=== PATIENT | female | born 1975 | race Two or more races ===

== ENCOUNTER 2018-10-13 16:16 | Emergency (ER) | payer OTHER ==
--- NOTE | 2018-10-13 17:18 | ER Document Report ---
ED Medical Screen (RME) - General Chief Complaint: Urinary Problem Stated Complaint: PAINFUL URINATION, BLOOD IN URINE Time Seen by Provider: 10/13/18 17:12 Primary Care Provider: ROSA WHITLOCK MD [Primary Care Provider] - Follow up as needed Mode of Arrival: Ambulatory Information source: Patient Notes: Patient presents to the emergency department with complaints of dysuria urinary frequency pain when she voids. Patient reports she has been evaluated by her provider treated with Rocephin 3 weeks ago for UTI symptoms. Patient reports she really did not have UTI symptoms but treated for UTI because they noted blood in her urine. She just had lab work done this Sunday. Patient's been told that she needs a CT scan to detect urinary tract infections because her kidneys have inflammation on the outside not on inside in UA does not detect an infection. She denies fever vomiting diarrhea. Reports she was lifting a couch yesterday when she felt pain. And since that time she has had all the symptoms. I have greeted and performed a rapid initial assessment of this patient. A comprehensive ED assessment and evaluation of the patient, analysis of test results and completion of the medical decision making process will be conducted by additional ED providers. Dictation of this chart was performed using voice recognition software; therefore, there may be some unintended grammatical errors. TRAVEL OUTSIDE OF THE [place] IN LAST 30 DAYS: No - Related Data Allergies/Adverse Reactions: oxycodone HCl [From Percocet] Allergy (Severe, Verified 10/13/18 16:19) Difficulty breathing morphine [Morphine] Allergy (Intermediate, Verified 10/13/18 16:19) Hives hydrocodone bitartrate [From Vicodin] Allergy (Mild, Verified 10/13/18 16:19) Dizziness Past Medical History - Social History Chew tobacco use (# tins/day): No Frequency of alcohol use: None Drug Abuse: None Renal/ Medical History: Denies: Hx Peritoneal Dialysis Past Surgical History: Reports: Hx Section - X 2, Hx Gynecologic Surgery - OVARIAN CYST. - Immunizations Hx Diphtheria, Pertussis, Tetanus Vaccination: Yes - Received 04/2012 Physical Exam - Vital signs Vitals: Temp Pulse Resp BP Pulse Ox 97.5 F 72 16 142/85 H 97 10/13/18 16:33 10/13/18 16:33 10/13/18 16:33 10/13/18 16:33 10/13/18 16:33 Course - Vital Signs Vital signs: Temp Pulse Resp BP Pulse Ox 97.5 F 72 16 142/85 H 97 10/13/18 16:33 10/13/18 16:33 10/13/18 16:33 10/13/18 16:33 10/13/18 16:33 Doctor's Discharge - Discharge Referrals: ROSA WHITLOCK MD [Primary Care Provider] - Follow up as needed
[2018-10-13 17:52] LABS: ABSOLUTE BASOPHILS # (AUTO) 0.1 10^3/uL (0.0-0.2); ABSOLUTE EOSINOPHILS # (AUTO) 0.2 10^3/uL (0.0-0.6); ABSOLUTE LYMPHOCYTES (AUTO) 2.7 10^3/uL (0.5-4.7); ABSOLUTE MONOCYTES (AUTO) 0.5 10^3/uL (0.1-1.4); ABSOLUTE NEUT (AUTO) 7.7 10^3/uL (1.7-8.2); EOSINOPHILS % (AUTO) 1.9 % (0-6); HEMATOCRIT 38.4 % (36.0-47.0); HEMOGLOBIN 12.9 g/dL (12.0-15.5); LYMPHOCYTES % (AUTO) 23.8 % (13-45); MEAN CORPUSCULAR HEMOGLOBIN 29.4 pg (27.0-33.4); MEAN CORPUSCULAR HGB CONC 33.6 g/dL (32.0-36.0); MEAN CORPUSCULAR VOLUME 88 fl (80-97); MONOCYTES % (AUTO) 4.3 % (3-13); PLATELET COUNT 361 10^3/uL (150-450); RED BLOOD COUNT 4.39 10^6/uL (3.72-5.28); RED CELL DISTRIBUTION WIDTH 12.6 % (11.5-14.0); TOTAL CELLS COUNTED % (AUTO) 100 %; WHITE BLOOD COUNT 11.2 10^3/uL (4.0-10.5)
[2018-10-13 18:13] LABS: ALANINE AMINOTRANSFERASE 52 U/L (9-52); ALBUMIN 4.5 g/dL (3.5-5.0); ALKALINE PHOSPHATASE 71 U/L (38-126); ANION GAP 9 (5-19); ASPARTATE AMINO TRANSFERASE 54 U/L (14-36); BILIRUBIN,DIRECT 0.2 mg/dL (0.0-0.4); BILIRUBIN,TOTAL 0.5 mg/dL (0.2-1.3); BLOOD UREA NITROGEN 11 mg/dL (7-20); CALCIUM 9.2 mg/dL (8.4-10.2); CARBON DIOXIDE 28 mmol/L (22-30); CHLORIDE 103 mmol/L (98-107); GLUCOSE 104 mg/dL (75-110); POTASSIUM 4.4 mmol/L (3.6-5.0); SODIUM 140.1 mmol/L (137-145); TOTAL PROTEIN 7.8 g/dL (6.3-8.2)
[2018-10-13 18:15] LABS: COLOR,URINE AMBER
[2018-10-13 18:16] LABS: APPEARANCE,URINE HAZY; BILIRUBIN,URINE NEGATIVE (NEGATIVE); GLUCOSE, URINE NEGATIVE (NEGATIVE); KETONES,URINE 25 mg/dL (NEGATIVE); LEUKOCYTE ESTERASE,URINE LARGE (NEGATIVE); NITRITE,URINE NEGATIVE (NEGATIVE); PROTEIN,URINE 100 mg/dL (NEGATIVE); URINE SPECIFIC GRAVITY 1.021; UROBILINOGEN,URINE NEGATIVE mg/dL (<2.0)
--- NOTE | 2018-10-13 18:34 | RADIOLOGY REPORT (SQ) ---
EXAM DESCRIPTION: U/S RETROPERITON (RENAL/AORTA) COMPLETED DATE/TIME: 10/13/2018 6:13 pm REASON FOR STUDY: pain, heamturia COMPARISON: None. TECHNIQUE: Dynamic and static grayscale images acquired of the kidneys and bladder and recorded on P ACS. Additional selected color Doppler and spectral images recorded. LIMITATIONS: None. FINDINGS: RIGHT KIDNEY: Normal size. Normal echogenicity. No solid or suspicious masses. No hydronep hrosis. No calcifications. LEFT KIDNEY: Normal size. Normal echogenicity. No solid or suspicious masses. No hydronephrosis. No calcifications. BLADDER: Decompressed. OTHER FINDINGS: 2.9 cm left ovarian cyst. Fatty infiltration of the liver. IMPRESSION: No hydronephrosis. Bladder decompressed. 2.9 cm left ovarian cyst. Fatty infiltration of the liver. TECHNICAL DOCUMENTATION: JOB ID: [id number] [id number] 2010 [employer]- All Rights Reserved Reading location - IP/workstation name: [email or web address]
[2018-10-13] MEDS ORDERED: CEFTRIAXONE 1 GM/D5W RTU 1 GM/50 ML RTUPB IV ONE (19:04)
[2018-10-13] MEDS ORDERED: KETOROLAC TROMETHAMINE INJ/PF 30 MG/1 ML SDV IV ONE (19:10)
--- NOTE | 2018-10-13 19:12 | ER Document Report ---
ED General - General Chief Complaint: Urinary Problem Stated Complaint: PAINFUL URINATION, BLOOD IN URINE Time Seen by Provider: 10/13/18 17:12 Primary Care Provider: ROSA WHITLOCK MD [ACTIVE STAFF] - Follow up as needed Mode of Arrival: Ambulatory Information source: Patient, [facility] Records Notes: Patient presents to the emergency department with complaints of dysuria urinary frequency pain when she voids. Patient reports she has been evaluated by her provider treated with Rocephin 3 weeks ago for UTI symptoms. Patient reports she really did not have UTI symptoms but treated for UTI because they noted blood in her urine. She just had lab work done this Sunday. Patient's been told that she needs a CT scan to detect urinary tract infections because her ki dneys have inflammation on the outside not on inside in UA does not detect an infection. She denies fever vomiting diarrhea. Reports she was lifting a couch yesterday when she felt pain. And since that time she has had all the symptoms. TRAVEL OUTSIDE OF THE [place] IN LAST 30 DAYS: No - HPI Onset: Other Onset/Duration: Gradual, Persistent Quality of pain: Achy, Cramping Severity: Mild Associated symptoms: denies: Chest pain, Chills, Diarrhea, Fever, Headache, Leg swelling, Nausea, Vomiting, Shortness of breath Exacerbated by: Denies Relieved by: Denies Similar symptoms previously: Yes Recently seen / treated by doctor: Yes - Related Data Allergies/Adverse Reactions: oxycodone HCl [From Percocet] Allergy (Severe, Verified 10/13/18 16:19) Difficulty breathing morphine [Morphine] Allergy (Intermediate, Verified 10/13/18 16:19) Hives hydrocodone bitartrate [From Vicodin] Allergy (Mild, Verified 10/13/18 16:19) Dizziness Past Medical History - General Information source: Patient - Social History Smoking Status: Unknown if Ever Smoked Chew tobacco use (# tins/day): No Frequency of alcohol use: None Drug Abuse: None Lives with: Family Family History: Reviewed & Not Pertinent Patient has suicidal ideation: No Patient has homicidal ideation: No Renal/ Medical History: Denies: Hx Peritoneal Dialysis Past Surgical History: Reports: Hx Section - X 2, Hx Gynecologic Surgery - OVARIAN CYST. - Immunizations Hx Diphtheria, Pertussis, Tetanus Vaccination: Yes - Received 04/2012 Review of Systems - Review of Systems Notes: REVIEW OF SYSTEMS: CONSTITUTIONAL : Denies fever, chills, or sweats. Denies recent illness. Denies weight loss, recent hospitalizations. EENT: Denies visual changes, eye pain. Denies sore throat, oral lesions, difficulty swallowing. CARDIOVASCULAR: Denies chest pain. Denies palpitations. Denies lower extremity edema. RESPIRATORY: Denies cough. Denies shortness of breath, wheezing. GASTROINTESTINAL: Denies abdominal distention. Denies nausea, vomiting, or diarrhea. Denies blood in vomitus, stools, or per rectum. Denies black, tarry stools. Denies constipation. GENITOURINARY: Denies vaginal discharge. MUSCULOSKELETAL: Denies back or neck pain or stiffness. Denies joint pain or swelling. SKIN: Denies rash, lesions or sores. HEMATOLOGIC : Denies easy bruising or bleeding. LYMPHATIC: Denies swollen glands. NEUROLOGICAL: Denies confusion or altered mental status. Denies loss of consciousness. Denies dizziness or lightheadedness. Denies headache. Denies weakness or paralysis. Denies problems difficulty with ambulation, slurred speech. Denies sensory loss, numbness, or tingling. Denies seizures. PSYCHIATRIC: Denies anxiety or stress. Denies depression, suicidal ideation, or homicidal ideation. Denies visual or auditory hallucinations. Physical Exam - Vital signs Vitals: Temp Pulse Resp BP Pulse Ox 97.5 F 72 16 142/85 H 97 10/13/18 16:33 10/13/18 16:33 10/13/18 16:33 10/13/18 16:33 10/13/18 16:33 - Notes Notes: PHYSICAL EXAMINATION: GENERAL: Well-appearing, well-nourished and in no acute distress. HEAD: Atraumatic, normocephalic. EYES: Pupils equal round and reactive to light, extraocular movements intact, conjunctiva are normal. ENT: Nares patent, oropharynx clear without exudates. Moist mucous membranes. NECK: Normal range of motion, supple without lymphadenopathy LUNGS: Breath sounds clear to auscultation bilaterally and equal. No wheezes rales or rhonchi. HEART: Regular rate and rhythm without murmurs ABDOMEN: Soft, tenderness with palpation to the left lower quadrant. Nondistended abdomen. No guarding, no rebound. No masses appreciated. Female : deferred Musculoskeletal: Normal range of motion, no pitting or edema. No cyanosis. NEUROLOGICAL: Cranial nerves grossly intact. Normal speech, normal gait. Normal sensory, motor exams PSYCH: Normal mood, normal affect. SKIN: Warm, Dry, normal turgor, no rashes or lesions noted. Course - Re-evaluation Re-evalutation: 10/15/18 11:20 Microbiology 10/13/18 16:35 Urine Culture - Final Clean Catch Midstream NO GROWTH 2 DAYS Laboratory 10/13/18 10/13/18 10/13/18 16:35 17:44 17:44 WBC 11.2 H RBC 4.39 Hgb 12.9 Hct 38.4 MCV 88 MCH 29.4 MCHC 33.6 RDW 12.6 Plt Count 361 Seg Neutrophils % 69.0 Lymphocytes % 23.8 Monocytes % 4.3 Eosinophils % 1.9 Basophils % 1.0 Absolute Neutrophils 7.7 Absolute Lymphocytes 2.7 Absolute Monocytes 0.5 Absolute Eosinophils 0.2 Absolute Basophils 0.1 Sodium 140.1 Potassium 4.4 Chloride 103 Carbon Dioxide 28 Anion Gap 9 BUN 11 Creatinine 0.55 Est GFR ( Amer) > 60 Est GFR (Non-Af Amer) > 60 Glucose 104 Calcium 9.2 Total Bilirubin 0.5 Direct Bilirubin 0.2 Neonat Total Bilirubin Not Reportable Neonat Direct Bilirubin Not Reportable Neonat Indirect Bili Not Reportable AST 54 H ALT 52 Alkaline Phosphatase 71 Total Protein 7.8 Albumin 4.5 Urine Color [place] Urine Appearance HAZY Urine pH 6.0 Ur Specific [place] 1.021 Urine Protein 100 H Urine Glucose (UA) NEGATIVE Urine Ketones 25 H Urine Blood LARGE H Urine Nitrite NEGATIVE Urine Bilirubin NEGATIVE Urine Urobilinogen NEGATIVE Ur Leukocyte Esterase LARGE H Urine WBC (Auto) >182 Urine RBC (Auto) >182 Urine Bacteria (Auto) TRACE Squamous Epi Cells Auto 1 Urine Mucus (Auto) RARE Urine Ascorbic Acid NEGATIVE Urine HCG, Qual NEGATIVE Renal Ultrasound 10/13/18 17:16 IMPRESSION: No hydronephrosis. Bladder decompressed. 2.9 cm left ovarian cyst. Fatty infiltration of the liver. Temp Pulse Resp BP Pulse Ox 97.8 F 63 17 150/90 H 99 10/13/18 20:10 10/13/18 20:10 10/13/18 20:10 10/13/18 20:10 10/13/18 20:10 Patient presents with symptoms consistent with an acute cystitis. Vitals wnl. No history of fever, flank pain, or constitution symptoms to suggest ascending infection at this time. Patient is well in appearance, tolerating oral intake without difficulty. No focal abdominal tenderness to suggest acute appendicitis, biliary pathology, acute pancreatitis, tubo-ovarian abscesses, or pelvic inflammatory disease. Patient will be started on antibiotics at this time. A culture has been sent. They will be discharged with return precautions and follow-up recommendations. - Vital Signs Vital signs: Temp Pulse Resp BP Pulse Ox 97.8 F 63 17 150/90 H 99 10/13/18 20:10 10/13/18 20:10 10/13/18 20:10 10/13/18 20:10 10/13/18 20:10 - Laboratory Result Diagrams: 10/13/18 17:44 10/13/18 17:44 Laboratory results interpreted by me: 10/13/18 10/13/18 10/13/18 16:35 17:44 17:44 WBC 11.2 H AST 54 H Urine Protein 100 H Urine Ketones 25 H Urine Blood LARGE H Ur Leukocyte Esterase LARGE H - Diagnostic Test Radiology reviewed: Image reviewed, Reports reviewed Discharge - Discharge Clinical Impression: Left ovarian cyst Urinary tract infection Qualifiers: Urinary tract infection type: site unspecified Hematuria presence: with hematuria Qualified Code(s): N39.0 - Urinary tract infection, site not specified Condition: Good Disposition: HOME, SELF-CARE Instructions: Urinary Tract Infection ([facility]) Additional Instructions: Your urine shows findings consistent with a urinary tract infection. Please take all the antibiotics as directed even if your symptoms have improved. Please follow-up with your primary care physician as needed. Return to emergency room if you develop fever >101F, persistent vomiting, become lethargic, have severe pain in your sides, or any other symptoms that are concerning to you. Prescriptions: Cephalexin Monohydrate [Keflex 500 mg Capsule] 500 mg PO BID 7 Days #14 capsule Fluconazole [Diflucan] 150 mg PO ONCE PRN #1 tablet PRN Reason: Forms: Elevated Blood Pressure, Return to Work Referrals: ROSA WHITLOCK MD [ACTIVE STAFF] - Follow up as needed
[2018-10-13 20:17] VITALS: BP 150/90
== END 2018-10-13 20:20 | disposition home or self-care (01) ==
LOC: ER 16:16
DX: N39.0 Urinary tract infection, site not specified (principal); R31.9 Hematuria, unspecified; N83.202 Unspecified ovarian cyst, left side; Z88.5 Allergy status to narcotic agent
CPT/HCPCS: 99284; 96375; 96365; 36415; 87086; 85025; 81025; 80053; 81001; 76770; J1885; J0696

== ENCOUNTER 2019-10-13 12:16 | Emergency (ER) | payer OTHER ==
[2019-10-13 13:40] LABS: ABSOLUTE BASOPHILS # (AUTO) 0.1 10^3/uL (0.0-0.2); ABSOLUTE EOSINOPHILS # (AUTO) 0.3 10^3/uL (0.0-0.6); ABSOLUTE LYMPHOCYTES (AUTO) 2.5 10^3/uL (0.5-4.7); ABSOLUTE MONOCYTES (AUTO) 0.3 10^3/uL (0.1-1.4); ABSOLUTE NEUT (AUTO) 3.9 10^3/uL (1.7-8.2); EOSINOPHILS % (AUTO) 3.8 % (0-6); HEMATOCRIT 41.1 % (36.0-47.0); HEMOGLOBIN 14.3 g/dL (12.0-15.5); LYMPHOCYTES % (AUTO) 35.2 % (13-45); MEAN CORPUSCULAR HEMOGLOBIN 30.4 pg (27.0-33.4); MEAN CORPUSCULAR HGB CONC 34.8 g/dL (32.0-36.0); MEAN CORPUSCULAR VOLUME 87 fl (80-97); MONOCYTES % (AUTO) 3.9 % (3-13); PLATELET COUNT 436 10^3/uL (150-450); RED CELL DISTRIBUTION WIDTH 12.6 % (11.5-14.0); SEGMENTED NEUTROPHILS % (AUTO) 56.1 % (42-78); TOTAL CELLS COUNTED % (AUTO) 100 %
[2019-10-13 13:49] LABS: APPEARANCE,URINE CLEAR; BILIRUBIN,URINE NEGATIVE (NEGATIVE); COLOR,URINE YELLOW; GLUCOSE, URINE NEGATIVE (NEGATIVE); KETONES,URINE NEGATIVE (NEGATIVE); LEUKOCYTE ESTERASE,URINE NEGATIVE (NEGATIVE); NITRITE,URINE NEGATIVE (NEGATIVE); PROTEIN,URINE NEGATIVE (NEGATIVE); URINE SPECIFIC GRAVITY 1.016; UROBILINOGEN,URINE NEGATIVE mg/dL (<2.0)
[2019-10-13 14:02] LABS: ALBUMIN 4.6 g/dL (3.5-5.0); ALKALINE PHOSPHATASE 88 U/L (38-126); ANION GAP 5 (5-19); ASPARTATE AMINO TRANSFERASE 52 U/L (14-36); BILIRUBIN,TOTAL 0.5 mg/dL (0.2-1.3); BLOOD UREA NITROGEN 10 mg/dL (7-20); CALCIUM 9.4 mg/dL (8.4-10.2); CARBON DIOXIDE 30 mmol/L (22-30); CHLORIDE 103 mmol/L (98-107); GLUCOSE 94 mg/dL (75-110); TOTAL PROTEIN 8.1 g/dL (6.3-8.2)
[2019-10-13] MEDS ORDERED: HYDROMORPHONE HCL INJ/PF 2 MG/ML AMPULE IM ONE (16:51)
--- NOTE | 2019-10-13 19:39 | ER Document Report ---
ED Neck/Back Problem - General Chief Complaint: Neck Pain >24hrs old Stated Complaint: NECK/SHOULDER PAIN Time Seen by Provider: 10/13/19 16:23 Primary Care Provider: JORGE MITCHELL PA-C [Primary Care Provider] - Follow up as needed Mode of Arrival: Ambulatory Information source: Patient Notes: Patient reports 1 week history of neck pain that radiates into the left upper extremity. 5 days ago she went to the [facility] and was given a prescription for Robaxin. Patient states that 5 days ago she went to her primary doctor had x-rays and received a steroid shot and Toradol. Patient states pain worsened today and this prompted her to come in. Patient states she has orders for an MRI but was unable to get the test completed at the [facility]. Patient states that the pain radiates to the left upper extremity to the level of the elbow and occasionally shoots into the left hand. Patient denies any fever or history of IV drug abuse. Patient states pain worsens when she turns her head laterally or looks up. Patient denies any fever. Patient denies any recent trauma. TRAVEL OUTSIDE OF THE [place] IN LAST 30 DAYS: No - HPI Patient complains to provider of: Neck Onset: Last week Timing: Worse Quality of pain: Sharp Pain Level: 5 Associated symptoms: denies: Fever, Lower back pain, Upper back pain Exacerbated by: Movement of neck Relieved by: Nothing Similar symptoms previously: No Recently seen / treated by doctor: Yes - Related Data Allergies/Adverse Reactions: oxycodone HCl [From Percocet] Allergy (Severe, Verified 10/13/18 16:19) Difficulty breathing morphine [Morphine] Allergy (Intermediate, Verified 10/13/18 16:19) Hives hydrocodone bitartrate [From Vicodin] Allergy (Mild, Verified 10/13/18 16:19) Dizziness Past Medical History - General Information source: Patient - Social History Smoking Status: Never Smoker Frequency of alcohol use: None Drug Abuse: None Occupation: [facility] Lives with: Family Family History: Reviewed & Not Pertinent Patient has homicidal ideation: No Renal/ Medical History: Reports: Hx Ovarian Cysts. Denies: Hx Peritoneal Dialysis Past Surgical History: Reports: Hx Section - X 2, Hx Gynecologic Surgery - OVARIAN CYST. - Immunizations Hx Diphtheria, Pertussis, Tetanus Vaccination: Yes - Received 04/2012 Review of Systems - Review of Systems Constitutional: No symptoms reported. denies: Fever EENT: No symptoms reported Cardiovascular: No symptoms reported. denies: Chest pain Respiratory: No symptoms reported. denies: Cough, Short of breath Gastrointestinal: No symptoms reported. denies: Nausea, Vomiting Genitourinary: No symptoms reported Female Genitourinary: No symptoms reported Musculoskeletal: Neck pain Skin: No symptoms reported Hematologic/Lymphatic: No symptoms reported Neurological/Psychological: No symptoms reported Physical Exam - Vital signs Vitals: Temp Pulse Resp BP Pulse Ox 98.7 F 72 16 150/91 H 100 10/13/19 12:19 10/13/19 12:19 10/13/19 12:19 10/13/19 12:19 10/13/19 12:19 - General General appearance: Appears well, Alert In distress: Mild - HEENT Head: Normocephalic, Atraumatic Eyes: Normal Conjunctiva: Normal Pupils: PERRL Nasal: Normal Mouth/Lips: Normal Mucous membranes: Normal Neck: Supple. No: Lymphadenopathy Notes: Patient with cervical tenderness with rotation of the head at the extremes lateral of range of motion, patient able to rotate laterally 45 degrees without difficulty, patient with tenderness with extension of the neck, patient able to flex neck without difficulty. - Respiratory Respiratory status: No respiratory distress Chest status: Nontender Breath sounds: Normal. No: Rales, Rhonchi, Stridor, Wheezing Chest palpation: Normal - Cardiovascular Rhythm: Regular Heart sounds: S1 appreciated, S2 appreciated Murmur: No - Abdominal Inspection: Normal - Back Back: Tender - Left trapezius muscle tenderness. 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 No: Involuntary movements, Weakness - Psychological Associated symptoms: Normal affect, Normal mood - Skin Skin Temperature: Warm Skin Moisture: Dry Skin Color: Normal Course - Re-evaluation Re-evalutation: 10/13/19 20:02 Patient with 5 out of 5 muscle strength and normal muscle tone to bilateral upper extremities. No focal neurologic deficits. No fever or leukocytosis. Consulted with Dr. Rueda regarding patient's MRI results, advises giving steroids and having patient follow-up with Ortho neuro spine specialty no additional testing advised at this time. - Vital Signs Vital signs: Temp Pulse Resp BP Pulse Ox 98.7 F 72 16 150/91 H 100 10/13/19 12:19 10/13/19 12:19 10/13/19 12:19 10/13/19 12:19 10/13/19 12:19 - Laboratory Result Diagrams: 10/13/19 12:23 10/13/19 12:23 Laboratory results interpreted by me: 10/13/19 10/13/19 12:23 12:23 AST 52 H ALT 61 H Urine Blood SMALL H 10/13/19 19:42 Labs- All tests 24 hr 10/13/19 10/13/19 10/13/19 12:23 12:23 12:23 WBC 7.0 RBC 4.70 Hgb 14.3 Hct 41.1 MCV 87 MCH 30.4 MCHC 34.8 RDW 12.6 Plt Count 436 Lymph % (Auto) 35.2 Reagan % (Auto) 3.9 Eos % (Auto) 3.8 Baso % (Auto) 1.0 Absolute Neuts (auto) 3.9 Absolute Lymphs (auto) 2.5 Absolute Monos (auto) 0.3 Absolute Eos (auto) 0.3 Absolute Basos (auto) 0.1 Seg Neutrophils % 56.1 Sodium 138.4 Potassium 4.0 Chloride 103 Carbon Dioxide 30 Anion Gap 5 BUN 10 Creatinine 0.60 Est GFR ( Amer) > 60 Est GFR (MDRD) Non-Af > 60 Glucose 94 Calcium 9.4 Total Bilirubin 0.5 Direct Bilirubin 0.0 Neonat Total Bilirubin Not Reportable Neonat Direct Bilirubin Not Reportable Neonat Indirect Bili Not Reportable AST 52 H ALT 61 H Alkaline Phosphatase 88 Total Protein 8.1 Albumin 4.6 Serum HCG, Qual NEGATIVE Urine Color Urine Appearance Urine pH Ur Specific [place] Urine Protein Urine Glucose (UA) Urine Ketones Urine Blood Urine Nitrite Urine Bilirubin Urine Urobilinogen Ur Leukocyte Esterase Urine WBC (Auto) Urine RBC (Auto) U Hyaline Cast (Auto) Squamous Epi Cells Auto Urine Mucus (Auto) Urine Ascorbic Acid 10/13/19 12:23 WBC RBC Hgb Hct MCV MCH MCHC RDW Plt Count Lymph % (Auto) Reagan % (Auto) Eos % (Auto) Baso % (Auto) Absolute Neuts (auto) Absolute Lymphs (auto) Absolute Monos (auto) Absolute Eos (auto) Absolute Basos (auto) Seg Neutrophils % Sodium Potassium Chloride Carbon Dioxide Anion Gap BUN Creatinine Est GFR ( Amer) Est GFR (MDRD) Non-Af Glucose Calcium Total Bilirubin Direct Bilirubin Neonat Total Bilirubin Neonat Direct Bilirubin Neonat Indirect Bili AST ALT Alkaline Phosphatase Total Protein Albumin Serum HCG, Qual Urine Color YELLOW Urine Appearance CLEAR Urine pH 5.0 Ur Specific [place] 1.016 Urine Protein NEGATIVE Urine Glucose (UA) NEGATIVE Urine Ketones NEGATIVE Urine Blood SMALL H Urine Nitrite NEGATIVE Urine Bilirubin NEGATIVE Urine Urobilinogen NEGATIVE Ur Leukocyte Esterase NEGATIVE Urine WBC (Auto) 1 Urine RBC (Auto) 1 U Hyaline Cast (Auto) 1 Squamous Epi Cells Auto 1 Urine Mucus (Auto) FEW Urine Ascorbic Acid NEGATIVE - Diagnostic Test Radiology reviewed: Reports reviewed Discharge - Discharge Clinical Impression: Neck pain, Cervical radiculopathy Condition: Stable Disposition: HOME, SELF-CARE Instructions: Radiculopathy ([facility]), Herniated Disc ([facility]) Additional Instructions: Return immediately for any new or worsening symptoms Followup with your primary care provider, call tomorrow to make a followup appointment Follow-up with orthopedics or neuro spine specialty for further management, call tomorrow for an appointment Prescriptions: Prednisone [Deltasone 20 mg Tablet] 3 tab PO DAILY 5 Days #15 tablet Hydromorphone HCl [Dilaudid 2 mg Tablet] 2 mg PO Q6 PRN #15 tablet PRN Reason: Lidocaine [Lidoderm 5% (700 mg) Transdermal Patch] 1 patch TP DAILY PRN #10 adh..patch PRN Reason: Referrals: JORGE MITCHELL PA-C [Primary Care Provider] - Follow up as needed [facility] [Provider Group] - Follow up tomorrow
--- NOTE | 2019-10-13 19:46 | RADIOLOGY REPORT (SQ) ---
EXAM DESCRIPTION: MRI CERVICAL SPINE COMBO IMAGES COMPLETED DATE/TIME: 10/13/2019 7:22 pm REASON FOR STUDY: neck pain, diff moving neck, L arm pain COMPARISON: None. TECHNIQUE: Sagittal and Axial imaging includes T1, T2, STIR and gradient echo sequences. T1 post jennifer olinium sequences. CONTRAST TYPE AND DOSE: 10 mL Prohance. RENAL FUNCTION: Not indicated. ACR Type II contrast agent associated with few, if any, unconfounded cases of NSF LIMITATIONS: None. FINDINGS: ALIGNMENT: Normal. VERTEBRAE: Intact. BONE MARROW: Normal. No marrow replacement or reactive changes. DISCS: There is loss of height of the C5-6 and C6-7 discs with decreased T2 signal intensity. HARDWARE: None in the spine. CORD AND BASE OF BRAIN: Normal in size and signal intensity. SOFT TISSUES: No soft tissue masses. C1-C2: No significant spinal stenosis. C2-C3: No significant spinal stenosis or exit foraminal stenosis. C3-C4: No significant spinal stenosis or exit foraminal stenosis. C4-C5: Shallow midline disc/ osteophyte complex contacts the spinal cord but does not deform the cord . No foraminal stenosis. C5-C6: Broad-based disc/osteophyte complex contacts the cord but does not deform the cord. There is no foraminal stenosis. C6-C7: Broad-based slightly asymmetrical disc/ osteophyte complex slightly deforms the cord on the le ft. See image 99 series 8. No foraminal stenosis. C7-T1: No significant spinal stenosis or exit foraminal stenosis. UPPER THORACIC: Incompletely imaged. No significant spinal stenosis or exit foraminal stenosis. ENHANCEMENT: No abnormal enhancement. OTHER: . IMPRESSION: There are disc/osteophyte complexes from C4 to C7 as described. The most significant fi nding appears to be a C6-7 where the left side of the cord is slightly deformed COMMENT: None. TECHNICAL DOCUMENTATION: JOB ID: [id number] 2010 [employer]- All Rights Reserved Reading location - IP/workstation name: [email or web address]
[2019-10-13] MEDS ORDERED: HYDROMORPHONE HCL INJ/PF 2 MG/ML AMPULE IV ONE (20:19)
[2019-10-13 21:23] VITALS: BP 145/70
== END 2019-10-13 21:46 | disposition home or self-care (01) ==
LOC: ER 12:16
DX: M54.12 Radiculopathy, cervical region (principal); M54.2 Cervicalgia; M79.602 Pain in left arm; M25.522 Pain in left elbow; M79.642 Pain in left hand; Z88.8 Allergy status to other drugs, medicaments and biological substances
CPT/HCPCS: 99284; 96372; 36415; 84703; 85025; 80053; 81001; 72156; A9576; J1170

== ENCOUNTER 2019-11-11 08:24 | Emergency (ER) | payer OTHER ==
[2019-11-11 09:26] VITALS: BP 144/81
[2019-11-11] MEDS ORDERED: NORMAL SALINE 1000 ML 1,000 ML IV ONE (10:07)
[2019-11-11] MEDS ORDERED: ONDANSETRON HCL INJ/PF 4 MG/2 ML SDV IV ONE ×3 (10:07→16:21)
[2019-11-11] MEDS ORDERED: HYDROMORPHONE HCL INJ/PF 2 MG/ML AMPULE IV ONE ×3 (10:07→16:21)
--- NOTE | 2019-11-11 10:07 | ER Document Report ---
Entered by BRADLEY DELGADO SCRIBE 11/11/19 0911 Acting as scribe for:CAROLYNN HERNANDEZ MD ED GI/ - General Chief Complaint: Fever Stated Complaint: FEVER,RECTAL PAIN Time Seen by Provider: 11/11/19 09:10 Primary Care Provider: [facility] [Provider Group] (Call tomorrow to schedule an appointment this week.) [facility] [Provider Group] - Follow up as needed Mode of Arrival: Ambulatory Information source: Patient Notes: This 44 year old female patient presents to the emergency department today with complaints of rectal pain, abdominal pain, and subjective fevers. Patient reports that on 11/05/19 she had a "sugaring" done which she reports is a type of wax hair removal and the next day she developed this rectal pain and she is unsure if it is related. Patient reports it is incredibly painful if she attem pts to have a bowel movement. TRAVEL OUTSIDE OF THE [place] 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 [employer] Lives with: Family Family History: Reviewed & Not Pertinent Renal/ Medical History: Reports: Hx Ovarian Cysts Past Surgical History: Reports: Hx Section - X 2, Hx Gynecologic Surgery - OVARIAN CYST REMOVAL - Immunizations Hx Diphtheria, Pertussis, Tetanus Vaccination: Yes - Received 04/2012 Review of Systems - Review of Systems Constitutional: See HPI, Fever - subjective EENT: No symptoms reported Cardiovascular: No symptoms reported Respiratory: No symptoms reported Gastrointestinal: See HPI, Abdominal pain, Other - rectal pain Genitourinary: No symptoms reported Female Genitourinary: No symptoms reported Musculoskeletal: No symptoms reported Skin: No symptoms reported Hematologic/Lymphatic: No symptoms reported Neurological/Psychological: No symptoms reported -: Yes All other systems reviewed and negative Physical Exam - Vital signs Vitals: Temp 99.0 F 11/11/19 08:26 - Notes Notes: Physical Exam: General: Alert, appears well. HEENT: Normocephalic. Atraumatic. PERRL. Extraocular movements intact. Oropharynx clear. Neck: Supple. Non-tender. Respiratory: No respiratory distress. Clear and equal breath sounds bilaterally. Cardiovascular: Regular rate and rhythm. Abdominal: Lower abdominal tenderness to palpation, Left > Right. No distension. Normal Bowel Sounds. Back: No gross abnormalities. Rectal: There are skin tags, there are no anal fissures seen externally. Lubricated digital rectal exam was exquisitely tender mostly to the left side and cephalic direction. There was extreme spasm of the anal sphincter. The exam was attempted a second time after introducing an ampule of lidocaine jelly from the [employer]. At this time there is still sphincter spasm, there is a question of fullness in the jerson-sphincter tissues in the cephalad direction. It is most tender that way. There is also some tenderness anteriorly towards the vagina and into the left side. There is no external swelling or suggestion of abscess. Extremities: Moves all four extremities. Upper extremities: Normal inspection. Normal ROM. Lower extremities: Normal inspection. No edema. Normal ROM. Neurological: Normal cognition. AAOx4. Normal speech. Psychological: Normal affect. Normal Mood. Skin: Warm. Dry. Normal color. Course - Vital Signs Vital signs: Temp Pulse Resp BP Pulse Ox 99.5 F 91 16 144/81 H 97 11/11/19 12:50 11/11/19 12:50 11/11/19 12:50 11/11/19 12:50 11/11/19 12:50 - Laboratory Result Diagrams: 11/11/19 11:49 11/11/19 11:49 Laboratory results interpreted by me: 11/11/19 11/11/19 10:50 11:49 Sodium 136.2 L Urine Blood LARGE H - Diagnostic Test Radiology reviewed: Image reviewed, Reports reviewed - CT scan of the abdomen and pelvis with rectal contrast does not show acute abnormality. - Consults Dr. Orozco Consulted provider: follow-up in office - Try Anusol HC suppositories. Discharge - Discharge Clinical Impression: Rectal or anal pain Condition: Stable Disposition: HOME, SELF-CARE Additional Instructions: There was no clear explanation for the anal and rectal pain you are experiencing. The contrasted CT scan of that region was unremarkable. Your white blood cell count did not suggest an infectious process. Try the Anusol HC suppositories and the pain medication as prescribed. Drink plenty of fluids and take a stool softener to keep your bowel movements soft. Call [facility] today or tomorrow to schedule an appointment this week for recheck. RETURN TO THE EMERGENCY ROOM IF ANY NEW OR WORSENING SYMPTOMS. Prescriptions: Hydrocortisone Acetate [Anusol Hc 25 mg Supp.rect] 1 supp.rect [place] BID #14 supp.rect Hydromorphone HCl [Dilaudid 2 mg Tablet] 2 mg PO ASDIR PRN #15 tablet PRN Reason: Forms: Return to Work Referrals: [facility] [Provider Group] - Follow up as needed [facility] [Provider Group] (Call tomorrow to schedule an appointment this week.) I personally performed the services described in the documentation, reviewed and edited the documentation which was dictated to the scribe in my presence, and it accurately records my words and actions.
[2019-11-11] MEDS ORDERED: LIDOCAINE 2% URO-JET 5 ML KIT MM ONE (10:08)
[2019-11-11 11:42] LABS: APPEARANCE,URINE CLEAR; BILIRUBIN,URINE NEGATIVE (NEGATIVE); COLOR,URINE YELLOW; GLUCOSE, URINE NEGATIVE (NEGATIVE); KETONES,URINE NEGATIVE (NEGATIVE); LEUKOCYTE ESTERASE,URINE NEGATIVE (NEGATIVE); NITRITE,URINE NEGATIVE (NEGATIVE); PROTEIN,URINE NEGATIVE (NEGATIVE); URINE SPECIFIC GRAVITY 1.011; UROBILINOGEN,URINE NEGATIVE mg/dL (<2.0)
[2019-11-11 12:08] LABS: ABSOLUTE EOSINOPHILS # (AUTO) 0.1 10^3/uL (0.0-0.6); ABSOLUTE LYMPHOCYTES (AUTO) 1.4 10^3/uL (0.5-4.7); ABSOLUTE MONOCYTES (AUTO) 0.7 10^3/uL (0.1-1.4); ABSOLUTE NEUT (AUTO) 7.5 10^3/uL (1.7-8.2); BASOPHILS % (AUTO) 0.5 % (0-2); EOSINOPHILS % (AUTO) 1.3 % (0-6); HEMATOCRIT 38.1 % (36.0-47.0); HEMOGLOBIN 13.1 g/dL (12.0-15.5); LYMPHOCYTES % (AUTO) 14.2 % (13-45); MEAN CORPUSCULAR HEMOGLOBIN 30.2 pg (27.0-33.4); MEAN CORPUSCULAR HGB CONC 34.4 g/dL (32.0-36.0); MEAN CORPUSCULAR VOLUME 88 fl (80-97); MONOCYTES % (AUTO) 6.7 % (3-13); PLATELET COUNT 421 10^3/uL (150-450); RED BLOOD COUNT 4.33 10^6/uL (3.72-5.28); SEGMENTED NEUTROPHILS % (AUTO) 77.3 % (42-78); TOTAL CELLS COUNTED % (AUTO) 100 %; WHITE BLOOD COUNT 9.7 10^3/uL (4.0-10.5)
[2019-11-11 12:28] LABS: ALKALINE PHOSPHATASE 104 U/L (38-126); ANION GAP 7 (5-19); ASPARTATE AMINO TRANSFERASE 35 U/L (14-36); BILIRUBIN,DIRECT 0.1 mg/dL (0.0-0.4); BILIRUBIN,TOTAL 0.8 mg/dL (0.2-1.3); BLOOD UREA NITROGEN 10 mg/dL (7-20); CARBON DIOXIDE 28 mmol/L (22-30); CHLORIDE 101 mmol/L (98-107); GLUCOSE 99 mg/dL (75-110); TOTAL PROTEIN 7.4 g/dL (6.3-8.2)
--- NOTE | 2019-11-11 14:38 | RADIOLOGY REPORT (SQ) ---
EXAM DESCRIPTION: CT ABD/PELVIS ORAL ONLY IMAGES COMPLETED DATE/TIME: 11/11/2019 2:25 pm REASON FOR STUDY: rectal pain; to use rectal contrast COMPARISON: None. TECHNIQUE: CT scan of the abdomen and pelvis performed without intravenous contrast. Rectal contras t was administered. Images reviewed with lung, soft tissue, and bone windows. Reconstructed coronal and sagittal MPR images reviewed. All images stored on PACS. All CT scanners at this facility use dose modulation, iterative reconstruction, and/or weight based d osing when appropriate to reduce radiation dose to as low as reasonably achievable (ALARA). [facility]: Dose Right [facility]: CareDose [facility]: Dose Right [facility]: Teradose 4D [facility]: Smart [employer] RADIATION DOSE: CT Rad equipment meets quality standard of care and radiation dose reduction techniq ues were employed. CTDIvol: 8.3 mGy. DLP: 473 mGy-cm.mGy. LIMITATIONS: None. FINDINGS: LOWER CHEST: No significant findings. No nodules or infiltrates. NON-CONTRASTED LIVER, SPLEEN, ADRENALS: Evaluation limited by lack of IV contrast. No identified sign ificant masses. PANCREAS: No masses. No peripancreatic inflammatory changes. GALLBLADDER: No identified stones by CT criteria. No inflammatory changes to suggest cholecystitis. RIGHT KIDNEY AND URETER: No suspicious masses. Assessment limited by lack of IV contrast. No signif icant calcifications. No hydronephrosis or hydroureter. LEFT KIDNEY AND URETER: No suspicious masses. Assessment limited by lack of IV contrast. No signifi cant calcifications. No hydronephrosis or hydroureter. AORTA AND RETROPERITONEUM: No aneurysm. No retroperitoneal masses or adenopathy. BOWEL AND PERITONEAL CAVITY: No obvious masses or inflammatory changes. No free fluid. APPENDIX: Normal. PELVIS, BLADDER, AND ABDOMINAL WALL:No abnormal masses. No free fluid. Bladder normal. BONES: No significant findings. OTHER: No other significant finding. IMPRESSION: NO SIGNIFICANT OR ACUTE PROCESS IN THE ABDOMEN OR PELVIS. COMMENT: Quality ID # [id number]: Final reports with documentation of one or more dose reduction techniques (e.g., Automated exposure control, adjustment of the mA and/or kV according to patient size, use of iterative reconstruction technique) TECHNICAL DOCUMENTATION: JOB ID: [id number] 2010 [employer]- All Rights Reserved Reading location - IP/workstation name: [email or web address]
== END 2019-11-11 17:24 | disposition home or self-care (01) ==
LOC: ER 08:24
DX: K62.89 Other specified diseases of anus and rectum (principal); R50.9 Fever, unspecified; R10.9 Unspecified abdominal pain; Z88.6 Allergy status to analgesic agent
CPT/HCPCS: 96376; 99284; 96361; 96374; 96375; 36415; 84703; 85025; 80053; 81001; 74176; J1170; J2405; J7030; J3490

== ENCOUNTER 2019-11-16 08:02 | Observation (INO) | payer OTHER ==
[2019-11-16] MEDS ORDERED: OPIUM/BELLADONNA ALKALOIDS 30-16.2 MG SUPP.RECT PR ONE (10:48)
[2019-11-16] MEDS ORDERED: NORMAL SALINE 1000 ML 1,000 ML IV ONE (10:54)
[2019-11-16] MEDS ORDERED: HYDROMORPHONE HCL INJ/PF 2 MG/ML AMPULE IV ONE ×4 (11:24→22:00)
[2019-11-16 11:53] LABS: INTERNATIONAL RATION (INR) 0.89; PARTIAL THROMBOPLASTIN TIME 26.5 SEC (23.5-35.8); PROTHROMBIN TIME 12.3 SEC (11.4-15.4)
[2019-11-16 12:00] LABS: HEMATOCRIT 40.4 % (36.0-47.0); HEMOGLOBIN 13.7 g/dL (12.0-15.5); MEAN CORPUSCULAR HEMOGLOBIN 29.8 pg (27.0-33.4); MEAN CORPUSCULAR HGB CONC 33.8 g/dL (32.0-36.0); MEAN CORPUSCULAR VOLUME 88 fl (80-97); PLATELET COUNT 528 10^3/uL (150-450); RED BLOOD COUNT 4.59 10^6/uL (3.72-5.28); RED CELL DISTRIBUTION WIDTH 12.8 % (11.5-14.0); WHITE BLOOD COUNT 21.2 10^3/uL (4.0-10.5)
[2019-11-16 12:08] LABS: APPEARANCE,URINE CLEAR; BILIRUBIN,URINE NEGATIVE (NEGATIVE); COLOR,URINE YELLOW; GLUCOSE, URINE NEGATIVE (NEGATIVE); KETONES,URINE NEGATIVE (NEGATIVE); LEUKOCYTE ESTERASE,URINE NEGATIVE (NEGATIVE); NITRITE,URINE NEGATIVE (NEGATIVE); PROTEIN,URINE NEGATIVE (NEGATIVE); URINE SPECIFIC GRAVITY 1.014; UROBILINOGEN,URINE NEGATIVE mg/dL (<2.0)
[2019-11-16 12:10] LABS: ALBUMIN 4.1 g/dL (3.5-5.0); ALKALINE PHOSPHATASE 118 U/L (38-126); ANION GAP 10 (5-19); ASPARTATE AMINO TRANSFERASE 29 U/L (14-36); BILIRUBIN,TOTAL 0.6 mg/dL (0.2-1.3); BLOOD UREA NITROGEN 14 mg/dL (7-20); CALCIUM 9.3 mg/dL (8.4-10.2); CARBON DIOXIDE 27 mmol/L (22-30); CHLORIDE 101 mmol/L (98-107); GLUCOSE 120 mg/dL (75-110); POTASSIUM 3.7 mmol/L (3.6-5.0); TOTAL PROTEIN 7.7 g/dL (6.3-8.2)
[2019-11-16 12:28] LABS: ABSOLUTE LYMPHOCYTES# (MANUAL) 2.5 10^3/uL (0.5-4.7); ABSOLUTE MONOCYTES # (MANUAL) 0.8 10^3/uL (0.1-1.4); BASOPHILS % (MANUAL) 1 % (0-2); EOSINOPHILS % (MANUAL) 0 % (0-6); LYMPHOCYTES % (MANUAL) 12 % (13-45); MONOCYTES % (MANUAL) 4 % (3-13); SEGMENTED NEUTROPHILS % (MAN) 83 % (42-78); TOTAL CELLS COUNTED 100
[2019-11-16 12:32] LABS: PLATELET COMMENT INCREASED; RBC MORPHOLOGY COMMENT NORMO-CYTIC/CHROMIC
[2019-11-16] MEDS ORDERED: VANCOMYCIN HCL INJ 1000 MG VIAL IV ONE (14:04)
[2019-11-16] MEDS ORDERED: CEFEPIME 2 GM/D5W RTU 2 GM/50 ML RTUPB IV ONE (15:00)
--- NOTE | 2019-11-16 15:05 | RADIOLOGY REPORT (SQ) ---
EXAM DESCRIPTION: CT ABD/PELVIS WITH IV ORAL IMAGES COMPLETED DATE/TIME: 11/16/2019 2:48 pm REASON FOR STUDY: rectal pain COMPARISON: CT abdomen and pelvis 11/11/2019. TECHNIQUE: CT scan of the abdomen and pelvis performed using helical scanning technique with dynamic intravenous contrast injection and with oral contrast. Images reviewed with lung, soft tissue, and b one windows. Reconstructed coronal and sagittal MPR images reviewed. Delayed images for evaluation of the urinary system also acquired. All images stored on PACS. All CT scanners at this facility use dose modulation, iterative reconstruction, and/or weight based d osing when appropriate to reduce radiation dose to as low as reasonably achievable (ALARA). [facility]: Dose Right [facility]: CareDose [facility]: Dose Right [facility]: Teradose 4D [facility]: [employer] CONTRAST TYPE AND DOSE: contrast/concentration: Isovue 350.00 mmol/ml; Total Contrast Delivered: 87. 0 ml; Total Saline Delivered: 66.0 ml RENAL FUNCTION: Creatinine 0.70 RADIATION DOSE: CT Rad equipment meets quality standard of care and radiation dose reduction techniq ues were employed. CTDIvol: 10.0 - 14.2 mGy. DLP: 1390 mGy-cm.. LIMITATIONS: None. FINDINGS: LOWER CHEST: No consolidation or pleural effusion. LIVER: Diffuse decreased attenuation, most consistent with fatty infiltration. No dilated ducts. SPLEEN: Normal size. PANCREAS: No significant calcifications. No adjacent inflammation or peripancreatic fluid collections . Pancreatic duct not dilated. GALLBLADDER: No identified stones by CT criteria. No inflammatory changes to suggest cholecystitis. ADRENAL GLANDS: No significant masses or asymmetry. RIGHT KIDNEY AND URETER: No solid masses. No significant calcifications. No hydronephrosis or hyd roureter. LEFT KIDNEY AND URETER: No solid masses. No significant calcifications. No hydronephrosis or hydr oureter. AORTA AND VESSELS: No abdominal aortic aneurysm or evidence for acute dissection. RETROPERITONEUM: No retroperitoneal adenopathy, hemorrhage or masses. BOWEL AND PERITONEAL CAVITY: No evidence for bowel obstruction, the oral contrast has reached the col on. There is soft tissue stranding with wall thickening at the rectum. There is a large loculated f luid collection with adjacent inflammatory changes extending from the posterior anus into the midline gluteal region measuring approximately 6.5 x 5.4 x 6.5 cm (AP by transverse by craniocaudal diameter ). No evidence of soft tissue emphysema. APPENDIX: Normal. PELVIS: The urinary bladder is partially distended. The uterus is present. No free fluid. ABDOMINAL WALL: No hernias. BONES: No significant or acute findings. IMPRESSION: 1. 6.5 x 5.4 x 6.5 cm loculated perianal abscess. Surgical consult commended. 2. Wall thickening with soft tissue stranding at the rectum, suggestive of prostatitis, may be second shelbi to the acute infection/inflammation from the above findings. 3. Fatty infiltration of the liver. TECHNICAL DOCUMENTATION: JOB ID: [id number]-64 Quality ID # [id number]: Final reports with documentation of one or more dose reduction techniques (e.g., Au tomated exposure control, adjustment of the mA and/or kV according to patient size, use of iterative reconstruction technique) 2010 [employer]- All Rights Reserved Reading location - IP/workstation name: [email or web address]
[2019-11-16] MEDS ORDERED: ONDANSETRON HCL INJ/PF 4 MG/2 ML SDV IV ONE (15:27)
--- NOTE | 2019-11-16 15:59 | RADIOLOGY REPORT (SQ) ---
EXAM DESCRIPTION: CHEST SINGLE VIEW IMAGES COMPLETED DATE/TIME: 11/16/2019 3:51 pm REASON FOR STUDY: sobr COMPARISON: None. NUMBER OF VIEWS: One view. TECHNIQUE: Single frontal radiographic view of the chest acquired. LIMITATIONS: Overlapping breast tissue. FINDINGS: LUNGS AND PLEURA: No opacities, masses or pneumothorax. No pleural effusion. MEDIASTINUM AND HILAR STRUCTURES: No masses. Contour normal. HEART AND VASCULAR STRUCTURES: Heart normal in size. Normal vasculature. BONES: No acute findings. HARDWARE: None in the chest. OTHER: No other significant finding. IMPRESSION: NO SIGNIFICANT RADIOGRAPHIC FINDING IN THE CHEST. TECHNICAL DOCUMENTATION: JOB ID: [id number] 2010 [employer]- All Rights Reserved Reading location - IP/workstation name: [email or web address]
[2019-11-16] MEDS ORDERED: KETOROLAC TROMETHAMINE INJ/PF 30 MG/1 ML SDV IV ONE (16:41)
[2019-11-16] MEDS ORDERED: LIDOCAINE 1%/EPINEPHRINE INJ 20 ML VIAL ONE (16:45)
[2019-11-16] MEDS: NORMAL SALINE 1000 ML 1,000 ML IV PRN (17:45)
[2019-11-16] MEDS: METRONIDAZOLE 500 MG/NS RTU 500 MG/100 ML RTUPB IV SCH (17:50)
--- NOTE | 2019-11-16 17:51 | PDOC H&P ---
History of Present Illness Admission Date/PCP: [facility] Patient complains of: Perirectal pain and swelling History of Present Illness: NIGHAT PEARL is a 44 year old female with 1 month history of perirectal pain and swelling. She was seen as an outpatient and given prednisone for a thrombosed hemorrhoid. Her pain and swelling worsened. She presents today with severe, 10 out of 10 pain. It is sharp and stabbing. It radiates into her rectum. She reports a bulge immediately posterior to her rectum. She is having difficulty with bowel movements. She denies fevers, chills, nausea, vomiting, abdominal pain, dizziness, orthostasis, fatigue, headache. Past Medical History Infectious History Note: PCOS Past Surgical History Past Surgical History: Reports: Section - X 2 Social History Smoking Status: Never Smoker Electronic Cigarette use?: No Frequency of Alcohol Use: None Hx Recreational Drug Use: No Hx Prescription Drug Abuse: No Family History Family History: Reviewed & Not Pertinent Parental Family History Reviewed: Yes Children Family History Reviewed: Yes Sibling(s) Family History Reviewed.: Yes Medication/Allergy Home Medications: Pv W-O Vit A/Iron,Carbonyl/FA [Prenatabs Obn Tablet] 1 each PO DAILY 11/16/11 Hydromorphone HCl [Dilaudid 2 Mg Tablet] 2 mg PO Q6HP PRN 06/01/12 Ibuprofen [Motrin 600 Mg Tablet] 600 mg PO QID 06/01/12 Cephalexin Monohydrate [Keflex 500 mg Capsule] 500 mg PO BID 7 Days #14 capsule 10/13/18 Fluconazole [Diflucan] 150 mg PO ONCE PRN #1 tablet 10/13/18 Hydromorphone HCl [Dilaudid 2 mg Tablet] 2 mg PO Q6 PRN #15 tablet 10/13/19 Lidocaine [Lidoderm 5% (700 mg) Transdermal Patch] 1 patch TP DAILY PRN #10 adh..patch 10/13/19 Prednisone [Deltasone 20 mg Tablet] 3 tab PO DAILY 5 Days #15 tablet 10/13/19 Hydrocortisone Acetate [Anusol Hc 25 mg Supp.rect] 1 supp.rect [place] BID #14 supp.rect 11/11/19 Hydromorphone HCl [Dilaudid 2 mg Tablet] 2 mg PO ASDIR PRN #15 tablet 11/11/19 Allergies/Adverse Reactions: oxycodone HCl [From Percocet] Allergy (Severe, Verified 11/16/19 08:07) Difficulty breathing morphine [Morphine] Allergy (Intermediate, Verified 11/16/19 08:07) Hives hydrocodone bitartrate [From Vicodin] Allergy (Mild, Verified 11/16/19 08:07) Dizziness Review of Systems Constitutional: ABSENT: anorexia, chills, fatigue Eyes: ABSENT: visual disturbances Ears: ABSENT: hearing changes Nose, Mouth, and Throat: ABSENT: sore throat Cardiovascular: ABSENT: chest pain Respiratory: ABSENT: cough Gastrointestinal: PRESENT: other - Rectal pain and swelling, severe Genitourinary: ABSENT: dysuria Musculoskeletal: ABSENT: back pain Integumentary: ABSENT: pruritus, rash Neurological: ABSENT: confusion, convulsions, dizziness Psychiatric: ABSENT: anxiety, depression Endocrine: ABSENT: cold intolerance, heat intolerance Hematologic/Lymphatic: ABSENT: easy bleeding, easy bruising Physical Exam Vital Signs: Temp Pulse Resp BP Pulse Ox 99.0 F 88 20 133/84 H 100 11/16/19 16:00 11/16/19 16:00 11/16/19 16:00 11/16/19 16:00 11/16/19 16:00 Intake & Output 11/15/19 11/16/19 11/17/19 06:59 06:59 06:59 Intake Total 1050 Balance 1050 Weight 76 kg General appearance: PRESENT: no acute distress, cooperative Head exam: PRESENT: atraumatic, normocephalic Eye exam: PRESENT: EOMI, PERRLA. ABSENT: scleral icterus Mouth exam: PRESENT: moist, neck supple Teeth exam: ABSENT: poor dentation Neck exam: ABSENT: meningismus, tenderness, thyromegaly, tracheal deviation Respiratory exam: PRESENT: unlabored. ABSENT: tachypnea Cardiovascular exam: PRESENT: tachycardia - Mild GI/Abdominal exam: PRESENT: soft. ABSENT: distended, firm, guarding, tenderness Rectal exam: PRESENT: tenderness - 12:00 posterior., other - Tender fluctuant/tense abscess in the 12:00 posterior position. Extremities exam: ABSENT: clubbing Musculoskeletal exam: ABSENT: deformity Neurological exam: PRESENT: alert, awake, oriented to person, oriented to place, oriented to time, oriented to situation Psychiatric exam: PRESENT: anxious. ABSENT: agitated, depressed Focused psych exam: ABSENT: delusional Skin exam: ABSENT: cyanosis, erythema, jaundice Results Laboratory Results: 11/16/19 11:24 11/16/19 11:24 11/16/19 11/16/19 11/16/19 11:24 11:24 11:24 WBC 21.2 H RBC 4.59 Hgb 13.7 Hct 40.4 MCV 88 MCH 29.8 MCHC 33.8 RDW 12.8 Plt Count 528 H Seg Neutrophils % Not Reportable Sodium 137.8 Potassium 3.7 Chloride 101 Carbon Dioxide 27 Anion Gap 10 BUN 14 Creatinine 0.70 Est GFR ( Amer) > 60 Glucose 120 H Lactic Acid 1.8 Calcium 9.3 Total Bilirubin 0.6 AST 29 Alkaline Phosphatase 118 Total Protein 7.7 Albumin 4.1 Lipase 97.2 Urine Color Urine Appearance Urine pH Ur Specific [place] Urine Protein Urine Glucose (UA) Urine Ketones Urine Blood Urine Nitrite Ur Leukocyte Esterase Urine WBC (Auto) Urine RBC (Auto) 11/16/19 11:24 WBC RBC Hgb Hct MCV MCH MCHC RDW Plt Count Seg Neutrophils % Sodium Potassium Chloride Carbon Dioxide Anion Gap BUN Creatinine Est GFR ( Amer) Glucose Lactic Acid Calcium Total Bilirubin AST Alkaline Phosphatase Total Protein Albumin Lipase Urine Color YELLOW Urine Appearance CLEAR Urine pH 6.0 Ur Specific [place] 1.014 Urine Protein NEGATIVE Urine Glucose (UA) NEGATIVE Urine Ketones NEGATIVE Urine Blood SMALL H Urine Nitrite NEGATIVE Ur Leukocyte Esterase NEGATIVE Urine WBC (Auto) 0 Urine RBC (Auto) 0 Impressions: Abdomen/Pelvis CT 11/16/19 00:00 IMPRESSION: 1. 6.5 x 5.4 x 6.5 cm loculated perianal abscess. Surgical consult commended. 2. Wall thickening with soft tissue stranding at the rectum, suggestive of prostatitis, may be secondary to the acute infection/inflammation from the above findings. 3. Fatty infiltration of the liver. Chest X-Ray 11/16/19 10:53 IMPRESSION: NO SIGNIFICANT RADIOGRAPHIC FINDING IN THE CHEST. Assessment & Plan - Diagnosis (1) Perirectal abscess Is this a current diagnosis for this admission?: Yes - Time Anticipated Discharge Disposition: Home, Self Care Anticipated Discharge Timeframe: within 48 hours - Plan Summary Plan Summary: This is a 44-year-old female with a large perirectal abscess. It is tense, distended, and appears superficial. I discussed treatment options with her and her . They have requested incision and drainage at the bedside tonight, in order to provide her with as much relief as possible. I have discussed with her the risks and benefits of the procedure, including need for further surgery. She has agreed to the procedure. Informed consent was obtained, and all questions were answered.
--- NOTE | 2019-11-16 17:58 | Operative Report ---
Nonrecallable Operative Report DATE OF SURGERY: 11/16/19 PREOPERATIVE DIAGNOSIS: Perirectal abscess POSTOPERATIVE DIAGNOSIS: Same OPERATION: Incision and drainage of a large perirectal abscess SURGEON: TRESA DICKERSON ANESTHESIA: Local - And Dilaudid COMPLICATIONS: None apparent ESTIMATED BLOOD LOSS: Minimal PROCEDURE: Drains/implants: 4 x 4 gauze. Procedure in detail: After informed consent was obtained, the patient was laid in the right lateral decubitus position in the ER treatment room. The area of the sacrum and rectum were prepped and draped in a normal sterile fashion. There was a tense, fluctuant area in the midline, 12:00 posterior position. 1% lidocaine with epinephrine was used to infiltrate the skin and soft tissue ar ound the fluctuant area. 15 blade scalpel was then used to create an incision in the skin. Dissection was carried to the abscess cavity using sharp dissection. The abscess cavity was laid open. A large amount of thick, foul- smelling, purulent material was encountered. The wound was probed, loculations were broken, the cavity was irrigated, and then it was packed. At this time the procedure was concluded. All sponge, instrument, and needle counts were correct x2. Condition: Stable.
[2019-11-16] MEDS: DOCUSATE SODIUM 100 MG CAPSULE PO SCH (18:29)
[2019-11-16] MEDS: HYDROMORPHONE HCL INJ/PF 2 MG/ML AMPULE IV PRN (18:29)
--- NOTE | 2019-11-16 19:31 | ER Document Report ---
Entered by SONJA ROBLES SCRIBE 11/16/19 1038 Acting as scribe for:YARIEL HOPKINS MD ED General - General Chief Complaint: Rectal Pain Stated Complaint: RECTAL PAIN Time Seen by Provider: 11/16/19 10:05 Information source: Patient Notes: This 44 year old female patient presents to the emergency department today with rectal pain. Patient states she visited the ED x5 days ago and her CT did not have any significant findings. Patient states she visited her PCP at [facility] x4 days ago and was told she may have a internal hemorrhoid. Patient states she was given Lidocaine, Prednisone, and cream. Patient states she is not able to have a bowel movement without pain and has been taking stool softeners. Patient states she is in too much pain when trying to sit and visited [facility] again yesterday. Patient states she was given Dilaudid and took x2 last night without relief. Denies vaginal pain, fever, chills, or bleeding from her rectum. Patient states her rectal pain radiates to her buttocks and lower abdomen. Patient also reports a chronic hemorrhoid she has had since her last . TRAVEL OUTSIDE OF THE [place] IN LAST 30 DAYS: No - Related Data Allergies/Adverse Reactions: oxycodone HCl [From Percocet] Allergy (Severe, Verified 11/16/19 08:07) Difficulty breathing morphine [Morphine] Allergy (Intermediate, Verified 11/16/19 08:07) Hives hydrocodone bitartrate [From Vicodin] Allergy (Mild, Verified 11/16/19 08:07) Dizziness Home Medications: naprosyn. prednisone. lidocaine. tizanidine. ketorolac. dialudid Past Medical History - General Information source: Patient - Social History Smoking Status: Never Smoker Cigarette use (# per day): No Chew tobacco use (# tins/day): No Frequency of alcohol use: None Drug Abuse: None Lives with: Family Family History: Reviewed & Not Pertinent Patient has homicidal ideation: No Renal/ Medical History: Reports: Hx Ovarian Cysts Past Surgical History: Reports: Hx Section - X 2, Hx Gynecologic Surgery - OVARIAN CYST REMOVAL - Immunizations Hx Diphtheria, Pertussis, Tetanus Vaccination: Yes - Received 04/2012 Review of Systems - Review of Systems Constitutional: See HPI. denies: Chills, Fever EENT: No symptoms reported Cardiovascular: No symptoms reported Respiratory: No symptoms reported Gastrointestinal: See HPI, Abdominal pain - lower abdomen, Other - rectal pain Genitourinary: No symptoms reported Female Genitourinary: See HPI, Other - no vaginal pain Musculoskeletal: No symptoms reported Skin: No symptoms reported Hematologic/Lymphatic: No symptoms reported Neurological/Psychological: No symptoms reported -: Yes All other systems reviewed and negative Physical Exam - Vital signs Vitals: Temp Pulse Resp BP Pulse Ox 98.5 F 126 H 24 H 170/99 H 99 11/16/19 08:06 11/16/19 08:06 11/16/19 08:06 11/16/19 08:06 11/16/19 08:06 - General General appearance: Alert In distress: Moderate - HEENT Head: Normocephalic, Atraumatic Eyes: Normal Pupils: PERRL - Respiratory Respiratory status: No respiratory distress Chest status: Nontender Breath sounds: Normal Chest palpation: Normal - Cardiovascular Rhythm: Regular Heart sounds: Normal auscultation Murmur: No - Abdominal Inspection: Normal Distension: No distension Bowel sounds: Normal Tenderness: Nontender - Rectal Notes: Patient has swelling just above the 12:00 superior anal region marked tenderness and swelling. - Extremities General upper extremity: Normal inspection. No: Edema General lower extremity: Normal inspection. No: Edema - Neurological Neuro grossly intact: Yes Cognition: Normal Orientation: AAOx4 Speech: Normal - Psychological Associated symptoms: Normal affect, Normal mood - Skin Skin Temperature: Warm Skin Moisture: Dry Skin Color: Normal Course - Re-evaluation Re-evalutation: 11/16/19 15:29 Patient in extreme pain in her rectal region. - Vital Signs Vital signs: Temp Pulse Resp BP Pulse Ox 99.0 F 88 15 115/75 98 11/16/19 16:00 11/16/19 16:00 11/16/19 19:01 11/16/19 19:00 11/16/19 19:01 11/16/19 15:29 Vital signs shows systolic diastolic hypertension 160/99 afebrile otherwise pulse 126. - Laboratory Result Diagrams: 11/16/19 11:24 11/16/19 11:24 Laboratory results interpreted by me: 11/16/19 11/16/19 11/16/19 11:24 11:24 11:24 WBC 21.2 H Plt Count 528 H Seg Neuts % (Manual) 83 H Lymphocytes % (Manual) 12 L Abs Neuts (Manual) 17.6 H Glucose 120 H Urine Blood SMALL H Leukocytosis consistent with some type of inflammatory infectious problem. - Diagnostic Test Radiology reviewed: Image reviewed, Reports reviewed Radiology results interpreted by me: 11/16/19 15:30 CT scan of abdomen pelvis with oral and IV contrast shows a loculated perianal abscess 6 x 5 x 6 and also wall thickening of the soft in the soft tissues with stranding. Chest x-ray pending at this time. Discharge - Discharge Clinical Impression: Perirectal abscess, Leukocytosis, Rectal or anal pain Condition: Serious Disposition: ADMITTED INPATIENT Admitting Provider: addison Unit Admitted: Surgical Floor I personally performed the services described in the documentation, reviewed and edited the documentation which was dictated to the scribe in my presence, and it accurately records my words and actions.
--- NOTE | 2019-11-16 20:40 | EKG REPORT ---
SEVERITY:- BORDERLINE ECG - SINUS RHYTHM LVH BY VOLTAGE BORDERLINE INFERIOR Q WAVES : Confirmed by: Luis Beasley MD 16-Nov-2019 20:39:01
[2019-11-16] MEDS ORDERED: LEVOFLOXACIN 500 MG/D5W RTU 500 MG/100 ML RTUPB IV SCH (22:00)
[2019-11-16] MEDS: FAMOTIDINE INJ/PF 20 MG/2 ML SDV IV SCH (22:02)
[2019-11-16] MEDS: ONDANSETRON HCL INJ/PF 4 MG/2 ML SDV IV PRN (23:26)
[2019-11-17] MEDS: METRONIDAZOLE 500 MG/NS RTU 500 MG/100 ML RTUPB IV SCH ×3 (02:15→17:53)
[2019-11-17] MEDS: ONDANSETRON HCL INJ/PF 4 MG/2 ML SDV IV PRN ×2 (03:37→11:41)
[2019-11-17] MEDS: HYDROMORPHONE HCL INJ/PF 2 MG/ML AMPULE IV PRN ×3 (03:37→16:40)
[2019-11-17] MEDS ORDERED: KETOROLAC TROMETHAMINE INJ/PF 30 MG/1 ML SDV ONE (05:55)
[2019-11-17] MEDS: KETOROLAC TROMETHAMINE INJ/PF 30 MG/1 ML SDV IV SCH ×2 (06:00→14:05)
--- NOTE | 2019-11-17 06:12 | PDOC PROGRESS REPORT ---
Subjective Progress Note for:: 11/17/19 Reason For Visit: PERIRECTAL ABSCESS Physical Exam Vital Signs: Temp Pulse Resp BP Pulse Ox 97.7 F 75 16 120/70 97 11/17/19 03:47 11/17/19 03:47 11/17/19 03:47 11/17/19 03:47 11/17/19 03:47 Intake & Output 11/15/19 11/16/19 11/17/19 06:59 06:59 06:59 Intake Total 1490 Output Total 1050 Balance 440 Weight 76 kg Results Laboratory Results: 11/16/19 11:24 11/16/19 11:24 11/16/19 11/16/19 11/16/19 11:24 11:24 11:24 WBC 21.2 H RBC 4.59 Hgb 13.7 Hct 40.4 MCV 88 MCH 29.8 MCHC 33.8 RDW 12.8 Plt Count 528 H Seg Neutrophils % Not Reportable Sodium 137.8 Potassium 3.7 Chloride 101 Carbon Dioxide 27 Anion Gap 10 BUN 14 Creatinine 0.70 Est GFR ( Amer) > 60 Glucose 120 H Lactic Acid 1.8 Calcium 9.3 Total Bilirubin 0.6 AST 29 Alkaline Phosphatase 118 Total Protein 7.7 Albumin 4.1 Lipase 97.2 Urine Color Urine Appearance Urine pH Ur Specific [place] Urine Protein Urine Glucose (UA) Urine Ketones Urine Blood Urine Nitrite Ur Leukocyte Esterase Urine WBC (Auto) Urine RBC (Auto) 11/16/19 11:24 WBC RBC Hgb Hct MCV MCH MCHC RDW Plt Count Seg Neutrophils % Sodium Potassium Chloride Carbon Dioxide Anion Gap BUN Creatinine Est GFR ( Amer) Glucose Lactic Acid Calcium Total Bilirubin AST Alkaline Phosphatase Total Protein Albumin Lipase Urine Color YELLOW Urine Appearance CLEAR Urine pH 6.0 Ur Specific [place] 1.014 Urine Protein NEGATIVE Urine Glucose (UA) NEGATIVE Urine Ketones NEGATIVE Urine Blood SMALL H Urine Nitrite NEGATIVE Ur Leukocyte Esterase NEGATIVE Urine WBC (Auto) 0 Urine RBC (Auto) 0 Impressions: Abdomen/Pelvis CT 11/16/19 00:00 IMPRESSION: 1. 6.5 x 5.4 x 6.5 cm loculated perianal abscess. Surgical consult commended. 2. Wall thickening with soft tissue stranding at the rectum, suggestive of prostatitis, may be secondary to the acute infection/inflammation from the above findings. 3. Fatty infiltration of the liver. Chest X-Ray 11/16/19 10:53 IMPRESSION: NO SIGNIFICANT RADIOGRAPHIC FINDING IN THE CHEST. Assessment & Plan - Diagnosis (1) Perirectal abscess Is this a current diagnosis for this admission?: Yes - Time Anticipated Discharge Disposition: Home, Self Care Anticipated Discharge Timeframe: within 24 hours - Plan Summary Plan Summary: 44-year-old female status post incision and drainage of a perirectal abscess. She reports that her symptoms are much improved today. Her edema and erythema are significantly improved. She has no purulent drainage at this time. I have removed and replaced her dressing. She should ambulate in the hallways today. She should shower and wash her anus/rectum twice per day with soap and water. Repeat labs today. Possible discharge later today, if doing well.
[2019-11-17 08:09] LABS: ABSOLUTE BASOPHILS # (AUTO) 0.1 10^3/uL (0.0-0.2); ABSOLUTE EOSINOPHILS # (AUTO) 0.1 10^3/uL (0.0-0.6); ABSOLUTE MONOCYTES (AUTO) 0.6 10^3/uL (0.1-1.4); ABSOLUTE NEUT (AUTO) 12.6 10^3/uL (1.7-8.2); BASOPHILS % (AUTO) 0.4 % (0-2); EOSINOPHILS % (AUTO) 0.6 % (0-6); HEMATOCRIT 33.9 % (36.0-47.0); HEMOGLOBIN 11.7 g/dL (12.0-15.5); LYMPHOCYTES % (AUTO) 12.9 % (13-45); MEAN CORPUSCULAR HEMOGLOBIN 30.3 pg (27.0-33.4); MEAN CORPUSCULAR HGB CONC 34.5 g/dL (32.0-36.0); MEAN CORPUSCULAR VOLUME 88 fl (80-97); MONOCYTES % (AUTO) 4.2 % (3-13); PLATELET COUNT 401 10^3/uL (150-450); RED BLOOD COUNT 3.87 10^6/uL (3.72-5.28); RED CELL DISTRIBUTION WIDTH 12.8 % (11.5-14.0); SEGMENTED NEUTROPHILS % (AUTO) 81.9 % (42-78); TOTAL CELLS COUNTED % (AUTO) 100 %; WHITE BLOOD COUNT 15.4 10^3/uL (4.0-10.5)
[2019-11-17] MEDS: DOCUSATE SODIUM 100 MG CAPSULE PO SCH ×2 (11:40→17:53)
[2019-11-17] MEDS: NORMAL SALINE 1000 ML 1,000 ML IV PRN (11:41)
[2019-11-17] MEDS: FAMOTIDINE INJ/PF 20 MG/2 ML SDV IV SCH (11:48)
[2019-11-17 16:13] VITALS: BP 133/84
--- NOTE | 2019-11-17 17:57 | PDOC DISCHARGE SUMMARY ---
General - Admit/Disc Date/PCP Admission Date/Primary Care Provider: 11/16/19 16:51 RAJEEV [place] Discharge Date: 11/17/19 - Discharge Diagnosis Final Diagnosis: Perianal abscess - Assessment Summary: Patient 44-year-old female presents emergency department with a several day history of buttock pain, swelling, and redness. She was found on physical examination to have findings consistent with an abscess, a leukocytosis of 21,000, CT scan findings consistent with large perianal abscess. Surgery was consulted, patient was admitted to the acute care surgical service and taken to the operating room by Dr. Gregg Prasad where she underwent drainage of the perianal abscess and packing. The following day she improved clinically, the packing removed, showered, and had a decline in her white blood cell count. She was kept on intravenous antibiotics. By the afternoon of the first postoperative day she was felt to receive maximum benefit of hospitalization and discharged home. She will take a showers, sits baths, Tylenol or Motrin as needed pain. She will follow-up with [facility] in 1 to 2 weeks. - Additional Information Resuscitation Status: Full Code Discharge Diet: Regular Discharge Activity: Activity As Tolerated Referrals: NIGHAT HITCHCOCK FNP-C [Primary Care Provider] - Follow up as needed TRESA PRASAD MD [ACTIVE STAFF] - 11/24/19 10:45 am (CALL THE OFFICE OF QUESTIONS AND CONCERNS) Home Medications: Hydromorphone HCl [Dilaudid 2 mg Tablet] 2 mg PO Q6 PRN #15 tablet 10/13/19 Lidocaine [Lidoderm 5% (700 mg) Transdermal Patch] 1 patch TP DAILY PRN #10 adh..patch 10/13/19 Hydrocortisone Acetate [Anusol Hc 25 mg Supp.rect] 1 supp.rect [place] BID #14 supp.rect 11/11/19 Ketorolac Tromethamine [Toradol 10 mg Tablet] 10 mg PO TID 11/17/19 Naproxen [Naprosyn] 500 mg PO BID 11/17/19 Tizanidine HCl [Zanaflex] 6 mg PO TID 11/17/19 History of Present Illiness History of Present Illness: NIGHAT PEARL is a 44 year old female Physical Exam Vital Signs: Temp Pulse Resp BP Pulse Ox 98.0 F 76 17 133/84 H 100 11/17/19 16:09 11/17/19 16:09 11/17/19 16:09 11/17/19 16:09 11/17/19 16:09 Intake & Output 11/16/19 11/17/19 11/18/19 06:59 06:59 06:59 Intake Total 1590 1900 Output Total 1050 Balance 540 1900 Weight 69.7 kg Results Laboratory Results: WBC 15.4 10^3/uL (4.0-10.5) H 11/17/19 07:24 RBC 3.87 10^6/uL (3.72-5.28) 11/17/19 07:24 Hgb 11.7 g/dL (12.0-15.5) L 11/17/19 07:24 Hct 33.9 % (36.0-47.0) L 11/17/19 07:24 MCV 88 fl (80-97) 11/17/19 07:24 MCH 30.3 pg (27.0-33.4) 11/17/19 07:24 MCHC 34.5 g/dL (32.0-36.0) 11/17/19 07:24 RDW 12.8 % (11.5-14.0) 11/17/19 07:24 Plt Count 401 10^3/uL (150-450) 11/17/19 07:24 Lymph % (Auto) 12.9 % (13-45) L 11/17/19 07:24 [place] % (Auto) 4.2 % (3-13) 11/17/19 07:24 Eos % (Auto) 0.6 % (0-6) 11/17/19 07:24 Baso % (Auto) 0.4 % (0-2) 11/17/19 07:24 Absolute Neuts (auto) 12.6 10^3/uL (1.7-8.2) H 11/17/19 07:24 Absolute Lymphs (auto) 2.0 10^3/uL (0.5-4.7) 11/17/19 07:24 Absolute Monos (auto) 0.6 10^3/uL (0.1-1.4) 11/17/19 07:24 Absolute Eos (auto) 0.1 10^3/uL (0.0-0.6) 11/17/19 07:24 Absolute Basos (auto) 0.1 10^3/uL (0.0-0.2) 11/17/19 07:24 Total Counted 100 11/16/19 11:24 Seg Neutrophils % 81.9 % (42-78) H 11/17/19 07:24 Seg Neuts % (Manual) 83 % (42-78) H 11/16/19 11:24 Lymphocytes % (Manual) 12 % (13-45) L 11/16/19 11:24 Monocytes % (Manual) 4 % (3-13) 11/16/19 11:24 Eosinophils % (Manual) 0 % (0-6) 11/16/19 11:24 Basophils % (Manual) 1 % (0-2) 11/16/19 11:24 Abs Neuts (Manual) 17.6 10^3/uL (1.7-8.2) H 11/16/19 11:24 Abs Lymphs (Manual) 2.5 10^3/uL (0.5-4.7) 11/16/19 11:24 Abs Monocytes (Manual) 0.8 10^3/uL (0.1-1.4) 11/16/19 11:24 Absolute Eos (Manual) 0.0 10^3/uL (0.0-0.6) 11/16/19 11:24 Abs Basophils (Manual) 0.2 10^3/uL (0.0-0.2) 11/16/19 11:24 Platelet Comment INCREASED 11/16/19 11:24 RBC Morph Comment NORMO-CYTIC/CHROMIC 11/16/19 11:24 PT 12.3 SEC (11.4-15.4) 11/16/19 11:24 INR 0.89 11/16/19 11:24 APTT 26.5 SEC (23.5-35.8) 11/16/19 11:24 Sodium 137.8 mmol/L (137-145) 11/16/19 11:24 Potassium 3.7 mmol/L (3.6-5.0) 11/16/19 11:24 Chloride 101 mmol/L (98-107) 11/16/19 11:24 Carbon Dioxide 27 mmol/L (22-30) 11/16/19 11:24 Anion Gap 10 (5-19) 11/16/19 11:24 BUN 14 mg/dL (7-20) 11/16/19 11:24 Creatinine 0.70 mg/dL (0.52-1.25) 11/16/19 11:24 Est GFR ( Amer) > 60 (>60) 11/16/19 11:24 Est GFR (MDRD) Non-Af > 60 (>60) 11/16/19 11:24 Glucose 120 mg/dL (75-110) H 11/16/19 11:24 Lactic Acid 1.8 mmol/L (0.7-2.1) 11/16/19 11:24 Calcium 9.3 mg/dL (8.4-10.2) 11/16/19 11:24 Total Bilirubin 0.6 mg/dL (0.2-1.3) 11/16/19 11:24 Direct Bilirubin 0.0 mg/dL (0.0-0.4) 11/16/19 11:24 Neonat Total Bilirubin Not Reportable 11/16/19 11:24 Neonat Direct Bilirubin Not Reportable 11/16/19 11:24 Neonat Indirect Bili Not Reportable 11/16/19 11:24 AST 29 U/L (14-36) 11/16/19 11:24 ALT 30 U/L (<35) 11/16/19 11:24 Alkaline Phosphatase 118 U/L (38-126) 11/16/19 11:24 Total Protein 7.7 g/dL (6.3-8.2) 11/16/19 11:24 Albumin 4.1 g/dL (3.5-5.0) 11/16/19 11:24 Lipase 97.2 U/L (23-300) 11/16/19 11:24 Urine Color YELLOW 11/16/19 11:24 Urine Appearance CLEAR 11/16/19 11:24 Urine pH 6.0 (5.0-9.0) 11/16/19 11:24 Ur Specific [place] 1.014 11/16/19 11:24 Urine Protein NEGATIVE mg/dL (NEGATIVE) 11/16/19 11:24 Urine Glucose (UA) NEGATIVE mg/dL (NEGATIVE) 11/16/19 11:24 Urine Ketones NEGATIVE mg/dL (NEGATIVE) 11/16/19 11:24 Urine Blood SMALL (NEGATIVE) H 11/16/19 11:24 Urine Nitrite NEGATIVE (NEGATIVE) 11/16/19 11:24 Urine Bilirubin NEGATIVE (NEGATIVE) 11/16/19 11:24 Urine Urobilinogen NEGATIVE mg/dL (<2.0) 11/16/19 11:24 Ur Leukocyte Esterase NEGATIVE (NEGATIVE) 11/16/19 11:24 Urine WBC (Auto) 0 /HPF 11/16/19 11:24 Urine RBC (Auto) 0 /HPF 11/16/19 11:24 Urine Mucus (Auto) MOD /LPF 11/16/19 11:24 Urine Ascorbic Acid NEGATIVE (NEGATIVE) 11/16/19 11:24 Impressions: Abdomen/Pelvis CT 11/16/19 00:00 IMPRESSION: 1. 6.5 x 5.4 x 6.5 cm loculated perianal abscess. Surgical consult commended. 2. Wall thickening with soft tissue stranding at the rectum, suggestive of prostatitis, may be secondary to the acute infection/inflammation from the above findings. 3. Fatty infiltration of the liver. Chest X-Ray 11/16/19 10:53 IMPRESSION: NO SIGNIFICANT RADIOGRAPHIC FINDING IN THE CHEST.
== END 2019-11-17 17:50 | disposition home or self-care (01) ==
LOC: ER 08:02 → EH 16:51 → 2N 20:15
PROVIDERS: ATTEND Surgery
DX: K61.0 Anal abscess (principal); D72.829 Elevated white blood cell count, unspecified
CPT/HCPCS: 46040; 93005; 96376; 99285; 96361; 96375; 96365; 36415 ×2; 87040; 83605; 83690; 85025 ×2; 85610; 85730; 80053; 81001; 71045; 74177; 93010; J1956; J3490 ×4; J1885 ×2; J1170 ×2; J2405 ×2; J7030 ×2; J3370; S0028; J0692